=== PATIENT | female | born 2000 | race Hispanic/Latino ===

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

== ENCOUNTER 2024-06-15 21:15 | Emergency (ER) | payer OTHER ==
--- OUTSIDE RECORDS SUMMARY | 2024-06-15 21:20 | XMS REPORT | Continuity of Care Document ---
Author Name Unknown Address [address] [facility] [address] [place] [address] [facility] thconnect Address [address] [facility] [address] [place] [address] Care Team Providers Care Mental Health Technician Name Role Phone PARESH RASCON Primary Care Physician Lluvia vailable REMI LEHMAN Attending Clinician Unavailable PAVITHRA THOMAS Attending Clinician Unavailable MIKE BETH Attending Clinician Unavailable [id number] Attending Clinician Unavailable [id number] Attending Clinician Unavailable MD CANDACE Attending Clinician Unavailab STACY Aggarwal Attending Clinician Unavailable [id number] Attending Clinician Unavailable Gilmar Toribio RN Attending Clinician UnavailMatt Morel MD Attending Clinician [phone] Unknown, Attending Attending Clinician UnavailMATT Cardona Attending Clinician Unavailable Doctor Unassigned, [place] Attending Clinician ROGER Neely Attending Clinician UnavailHEIDI Umana Attending Clinician Unavailable Stacy Martin MD Attending Clinician [id number] Attending Clinician Unavailable Mike Beth MD Attending Clinician [phone] VITOR SANCHEZ Attending Clinician Unavailable Salena Hernandez PA-C Attending Clinician [phone] Payers Payer Name Policy Type Policy Number Effective Date Expirati on Date Source [facility] 2020 9 [id number] 00:00:00 Problems Condition Name Condition Details Condition Category Status Onset Date Resolution Date Last Treatment Date Treating Clinician Comments Source Attention deficit hyperactiv ity disorder (ADHD), combined type Attention deficit hyperactiv ity disorder (ADHD), combined type Disease Active 07-21 00:00: 00 Suly Sawyerold - Externa l No known active problems No known active problems Disease Suly Magallanes Allergies, Adverse Reactions, Alerts Allergy Name Allergy Type Status Severity Reaction(s) Onset Date Inactive Date Treating Clinician Comments Source Augmenti n Propensi ty to adverse reaction s Active 2018-04 00:00: 00 Suly Sawyerold - Externa l Shrimp (Diagnos tic) Propensi ty to adverse reaction s Active 04-30 00:00: 00 Other reaction( s): Unknown Suly Seybold - Externa l Topirama te Propensi ty to adverse reaction s Active Other - See comments 09-28 00:00: 00 [facility] TOPIRAOK TE DRUG INGREDI Active Other-Cmnt 09-28 00:00: 00 [facility] Topirama te Propensi ty to adverse reaction s Active Other 09-28 00:00: 00 Has suicidal thoughts Suly Magallanes - Externa l Shrimp Propensi ty to adverse reaction s Active Hives 07-07 00:00: 00 [facility] AMOXICIL ANIRUDH-POT CLAVULAN ATE DRUG Active Swelling 07-07 00:00: 00 [facility] SHRIMP DRUG INGREDI Active Hives 07-07 00:00: 00 [facility] Amoxicil anirudh-Pot Clavulan ate Propensi ty to adverse reaction s Active Swelling 07-07 00:00: 00 [facility] Amoxicil anirudh Propensi ty to adverse reaction s Active 09-12 00:00: 00 Other reaction( s): Hives/Michael h Suly Sawyerold - Externa l Clavulan ic Acid Propensi ty to adverse reaction s Active 09-12 00:00: 00 Other reaction( s): Hives/Michael h Suly Seybold - Externa l Iodine Propensi ty to adverse reaction s Active 09-12 00:00: 00 Other reaction( s): Hives/Michael h Suly Seybold - Externa l Social History Social Habit Start Date Stop Date Quantity Comments Source Gender identity 2021-04-23 09:22:39 Identifies as female gender (finding) Suly Sawyertien - External Sexual orientation 2021-03-07 11:58:35 Heterosexual (finding) Suly Magallanes - External History SDOH Alcohol Std Drinks Suly shelby History SDOH Alcohol Binge Suly Magallanes History SDOH Alcohol Comment Suly Magaña ld ASSERTION Not Suly Magallanes - External Alcoholic beverage intake 2024-03-22 00:00:00 2024-03-22 00:00:00 Lifetime non-drinker (finding) Suly Magallanes - External Alcohol intake 2023-06-04 00:00:00 2023-06-04 00:00:00 Lifetime non-drinker (finding) Suly Magallanes - External History of Social function 2022-09-05 00:00:00 2022-09-05 00:00:00 Suly Magallanes - External Tobacco use and exposure 2022-08-04 00:00:00 2022-08-04 00:00:00 Smokeless tobacco non-user Suly Magallanes - External Exposure to SARS-CoV-2 (event) 2022-05-16 00:00:00 2022 15:29:00 Not sure [facility] History SDOH Alcohol Frequency 2019-02-15 00:00:00 2019-02-15 00:00:00 1 Suly Sona Sex 2018-09-29 21:57:12 2018-09-29 21:57:12 Female (finding) Suly Magallanes - External Tobacco Comment 2015-07-08 00:00:00 2015-07-08 00:00:00 no smokers in household [facility] Sex Assigned At 2000 00:00:00 2000 00:00:00 [facility] Smoking Status Start Date Stop Date Source Never smoked tobacco Suly Underwood Medications Ordered Medication Name Filled Medication Name Start Date Stop Date Current Medication? Ordering Clinician Indication Dosage Frequency Signature (SIG) Comments Components Source Valacyclovi r HCl 1 g oral Tablet 2023-04 2-10 00:00: 00 Yes [id number] 2000mg Q.5D Take 2 tablets (2,000 mg total) by mouth 2 times daily. Suly Araujoa nunu Lisdexamfet amine Dimesylate 50 MG oral Capsule 2023-04 1-11 00:00: 00 Yes [id number] 50mg Take 1 capsule (50 mg total) by mouth every morning. Suly eddy Lisdexamfet amine Dimesylate (Vyvanse) 40 MG oral Capsule 8-12 00:00: 00 Yes [id number] 40mg Take 1 capsule (40 mg total) by mouth every morning. Suly eddy Valacyclovi r HCl 1 g oral Tablet 8-05 00:00: 00 03-22 00:00 :00 No [id number] 2000mg Q.5D Take 2 tablets (2,000 mg total) by mouth 2 times daily. Suly eddy Lisdexamfet amine Dimesylate (Vyvanse) 20 MG oral Capsule 5-14 00:00: 00 Yes [id number] 20mg Take 1 capsule (20 mg total) by mouth every morning. Suly eddy Valacyclovi r HCl 1 g oral Tablet 4-30 00:00: 00 Yes [id number] 2000mg Take 2 tablets (2,000 mg total) by mouth 2 times daily. Suly eddy Letrozole 2.5 MG oral Tablet 4-24 00:00: 00 09-21 00:00 :00 No [id number] Take two tablets by mouth on days 3-7 of next cycle.. Suly eddy Methylpheni date HCl 10 MG oral Tablet 4-10 00:00: 00 08-24 00:00 :00 No [id number] 10mg Take 1 tablet (10 mg total) by mouth 2 times daily. Suly Araujoa nunu Letrozole 2.5 MG oral Tablet 2-12 00:00: 00 08-04 00:00 :00 No Take two tablets by mouth on days 3-7 of next cycle.. Suly Magallanes - Gaylea l PHENTERMINE HCL OR 05-14 14:46: 20 05-14 00:00 :00 No 1{tbl} Take 1 tablet by mouth daily Suly Lemus l Valacyclovi r HCl 1 g oral Tablet 05-14 00:00: 00 Yes [id number] 2000mg Take 2 tablets (2,000 mg total) by mouth 2 times daily. Suly Araujoa nunu Letrozole 2.5 MG oral Tablet 1-10 00:00: 00 Yes Take two tablets by mouth on days 3-7 of next cycle.. Suly Araujoa l Letrozole 2.5 MG oral Tablet 2022-04 2-15 00:00: 00 05-14 00:00 :00 No [id number] TAKE 1 TABLET BY MOUTH ON DAYS 3-7 OF NEXT CYCLE. Suly Araujoa l PHENTERMINE HCL OR -26 11:18: 49 Yes 1{tbl} Take 1 tablet by mouth daily Suly eddy Letrozole 2.5 MG oral Tablet -26 00:00: 00 Yes [id number] Take one tablet by mouth on days 3-7 of next cycle. Suly Araujoa l PHENTERMINE HCL OR 0 4-24 10:05: 56 Yes 1{tbl} Take 1 tablet by mouth daily Suly eddy ibuprofen 600 mg tablet 2-13 00:00: 00 Yes [id number] 600mg Take 1 tablet by mouth every 6 (six) hours as needed for Pain (scale 4-6) or Pain (scale 1-3). [facility] Ondansetron (ZOFRAN) 4 MG oral TABLET DISPERSIBLE 2-13 00:00: 00 05-14 00:00 :00 No 4mg Q.[id number] 3D Take 1 tablet (4 mg total) by mouth every 8 hours as needed. Suly eddy PHENTERMINE HCL OR 06-26 13:30: 51 Yes 1{tbl} Take 1 tablet by mouth daily Suly Magallanes Acyclovir 400 MG oral Tablet 06-26 00:00: 00 05-14 00:00 :00 No [id number] 400mg Take 1 tablet (400 mg total) by mouth 3 times daily x7 days or until resolution of cold sore. Repeat for at first sign of cold sore. Suly dedy PHENTERMINE HCL OR 05-08 09:38: 05 Yes 1{tbl} Take 1 tablet by mouth daily Suly Magallanes Norgestimat e-Ethinyl Estradiol (Tri-Sprint ec) 0.18/0.215/ 0.25 MG-35 MCG oral Tablet 05-08 00:00: 00 08-04 00:00 :00 No [id number] 1{tbl} Take 1 tablet by mouth daily Suly eddy Venlafaxine HCl 75 MG oral Capsule 24 Hour Sustained Release 2020-04 00:00: 00 08-04 00:00 :00 No [id number] 75mg Take 1 capsule (75 mg total) by mouth daily Suly eddy PHENTERMINE HCL OR 2020-04 10:34: 44 Yes 1{tbl} Take 1 tablet by mouth daily Suly Magallanes Lorazepam (ATIVAN) 0.5 MG oral Tablet tablet 2020-04 00:00: 00 08-04 00:00 :00 No [id number] .25mg Q.[id number] 3D Take 0.5 tablets (0.25 mg total) by mouth every 8 hours as needed for anxiety Suly eddy PHENTERMINE HCL OR 2020-04 14:47: 17 Yes 1{tbl} Take 1 tablet by mouth daily Suly Magallanes Doxycycline Hyclate 100 MG oral Capsule 2020-04 00:00: 00 04-02 05:59 :00 No [id number] 100mg Take 1 capsule (100 mg total) by mouth 2 times daily for 7 days Suly Magallanes Ibuprofen 600 MG oral Tab 2019-04 00:00: 00 Yes [id number] 600mg Q.[id number] 3D Take 1 tablet (600 mg total) by mouth every 8 hours as needed for pain Suly Araujoa l proMETHazin e (PHENERGAN) 25 mg tablet 01-10 00:00: 00 05-26 00:00 :00 No 25mg Take 1 tablet by mouth every 6 (six) hours as needed for Nausea and Vomiting (N/V). [facility] proMETHazin e (PHENERGAN) 25 mg tablet 09-28 00:00: 00 05-26 00:00 :00 No 25mg Take 1 tablet by mouth every 6 (six) hours as needed for Nausea and Vomiting (N/V). [facility] IBUPROFEN ORAL 07-07 09:24: 49 Yes Take by mouth as needed for Headache. [facility] proMETHazin e (PHENERGAN) 25 mg tablet 07-07 00:00: 00 05-26 00:00 :00 No 25mg Take 1 Tab by mouth every 4 (four) hours as needed for Nausea and Vomiting (N/V). [facility] Immunizations Ordered Immunization Name Filled Immunization Name Date Status Comments Source Influenza Virus Vaccine, age 6 months and up 2022-01-31 00:00:00 Rodolfo Underwood Influenza Virus Vaccine, age 6 months and up 2022-01-31 00:00:00 Rodolfo Underwood HPV 9 (Human Papillomavirus) 2021-12-06 00:00:00 Completed Suly Underwood HPV 9 (Human Papillomavirus) 2021-12-06 00:00:00 Rodolfo Underwood PPD-Protein Derivative (Purified)- Tuberculin 2021-11-12 00:00:00 Completed Suly Seybold - External PPD-Protein Derivative (Purified)- Tuberculin 2021-11-12 00:00:00 Completed Suly ybold - External Hepatitis B- 2 Dose (HEPLISAV B) 2021-11-08 00:00:00 Completed Suly ybold - External HPV 9 (Human Papillomavirus) 2021-11-08 00:00:00 Completed Suly ybold - External MENINGOCOCCAL VACCINE-CONJUGATE(ME NQUADFI) 2021-11-08 00:00:00 Completed Suly Palomaresybold - External Tdap- (Boostrix, Adacel) 2021-11-08 00:00:00 Completed Suly ybold - External Hepatitis B- 2 Dose (HEPLISAV B) 2021-11-08 00:00:00 Completed Suly ybold - External HPV 9 (Human Papillomavirus) 2021-11-08 00:00:00 Completed Suly Palomaresjcold - External MENINGOCOCCAL VACCINE-CONJUGATE(ME NQUADFI) 2021-11-08 00:00:00 [facility]- (Boostrix, Adacel) 2021-11-08 00:00:00 Completed Suly ybold - External Covid-19 Vaccine ([employer]), Mrna-lnp, Butch Protein, Pf, 30mcg/0.3ml,IM 2021-08-01 00:00:00 Completed Suly Seybold - External Covid-19 Vaccine (Pfizer), Mrna-lnp, Butch Protein, Pf, 30mcg/0.3ml,IM 2021-08-01 00:00:00 Completed Suly Seybold - External Covid-19 Vaccine (Pfizer), Mrna-lnp, Butch Protein, Pf, 30mcg/0.3ml,IM 2021-06-12 00:00:00 Completed Suly Seybold - External Covid-19 Vaccine (Pfizer), Mrna-lnp, Butch Protein, Pf, 30mcg/0.3ml,IM 2021-06-12 00:00:00 Completed Suly Seybold - External Covid-19 Vaccine (Pfizer), Mrna-lnp, Butch Protein, Pf, 30mcg/0.3ml,IM Unknown Completed Suly Sawyerol d - External Hepatitis B- 2 Dose (HEPLISAV B) Unknown Completed [facility] - External HPV 9 (Human Papillomavirus) Unknown [facility] MENINGOCOCCAL VACCINE-CONJUGATE(ME NQUADFI) Unknown Completed [facility] - External Tdap- (Boostrix, Adacel) Unknown Completed [facility] - External PPD-Protein Derivative (Purified)- Tuberculin Unknown Completed [facility] External Influenza Virus Vaccine, age 6 months and up Unknown Completed [facility] - External Covid-19 Vaccine ([employer]), Mrna-lnp, Butch Protein, Pf, 30mcg/0.3ml,IM Unknown [facility] Hepatitis B- 2 Dose (HEPLISAV B) Unknown Completed [facility] External HPV 9 (Human Papillomavirus) Unknown Completed [facility] - External MENINGOCOCCAL VACCINE-CONJUGATE(ME NQUADFI) Unknown Completed [facility] - External Tdap- (Boostrix, Adacel) Unknown Completed [facility] External PPD-Protein Derivative (Purified)- Tuberculin Unknown Completed [facility] External Influenza Virus Vaccine, age 6 months and up Unknown Completed [facility] - External Covid-19 Vaccine ([employer]), Mrna-lnp, Butch Protein, Pf, 30mcg/0.3ml,IM Unknown [facility] Hepatitis B- 2 Dose (HEPLISAV B) Unknown Completed [facility] External HPV 9 (Human Papillomavirus) Unknown Completed [facility] - External MENINGOCOCCAL VACCINE-CONJUGATE(ME NQUADFI) Unknown Completed [facility] - External Tdap- (Boostrix, Adacel) Unknown Completed [facility] External PPD-Protein Derivative (Purified)- Tuberculin Unknown Completed [facility] - External Influenza Virus Vaccine, age 6 months and up Unknown Completed [facility] - External Covid-19 Vaccine ([employer]), Mrna-lnp, Butch Protein, Pf, 30mcg/0.3ml,IM Unknown [facility] Hepatitis B- 2 Dose (HEPLISAV B) Unknown Completed [facility] - External HPV 9 (Human Papillomavirus) Unknown [facility] - External MENINGOCOCCAL VACCINE-CONJUGATE(ME NQUADFI) Unknown Completed [facility] - External Tdap- (Boostrix, Adacel) Unknown Completed [facility] - External PPD-Protein Derivative (Purified)- Tuberculin Unknown Completed [facility] External Influenza Virus Vaccine, age 6 months and up Unknown Completed [facility] - External Covid-19 Vaccine ([employer]), Mrna-lnp, Butch Protein, Pf, 30mcg/0.3ml,IM Unknown [facility] External Hepatitis B- 2 Dose (HEPLISAV B) Unknown Completed [facility] External HPV 9 (Human Papillomavirus) Unknown Completed [facility] - External MENINGOCOCCAL VACCINE-CONJUGATE(ME NQUADFI) Unknown Completed [facility] External Tdap- (Boostrix, Adacel) Unknown Completed [facility] External PPD-Protein Derivative (Purified)- Tuberculin Unknown Completed [facility] External Influenza Virus Vaccine, age 6 months and up Unknown Completed [facility] External Covid-19 Vaccine ([facility]), Mrna-lnp, Butch Protein, Pf, 30mcg/0.3ml,IM Unknown [facility] External Hepatitis B- 2 Dose (HEPLISAV B) Unknown Completed [facility] External HPV 9 (Human Papillomavirus) Unknown Completed [facility] - External MENINGOCOCCAL VACCINE-CONJUGATE(ME NQUADFI) Unknown Completed [facility] External Tdap- (Boostrix, Adacel) Unknown Completed [facility] External PPD-Protein Derivative (Purified)- Tuberculin Unknown Completed [facility] External Influenza Virus Vaccine, age 6 months and up Unknown Completed [facility] External Covid-19 Vaccine (Pfizer), Mrna-lnp, Butch Protein, Pf, 30mcg/0.3ml,IM Unknown [facility] Hepatitis B- 2 Dose (HEPLISAV B) Unknown Completed [facility] - External HPV 9 (Human Papillomavirus) Unknown Completed [facility] - External MENINGOCOCCAL VACCINE-CONJUGATE(ME NQUADFI) Unknown Completed [facility] - External Tdap- (Boostrix, Adacel) Unknown Completed [facility] - External PPD-Protein Derivative (Purified)- Tuberculin Unknown Completed Suly Magallanes - External Influenza Virus Vaccine, age 6 months and up Unknown Completed Suly Magallanes - External Covid-19 Vaccine ([employer]), Mrna-lnp, Butch Protein, Pf, 30mcg/0.3ml,IM Unknown Completed Suly Sawyerol d - External Hepatitis B- 2 Dose (HEPLISAV B) Unknown Completed Suly Magallanes - External HPV 9 (Human Papillomavirus) Unknown Completed Suly Magaña ld - External MENINGOCOCCAL VACCINE-CONJUGATE(ME NQUADFI) Unknown Completed Suly Magallanes - External Tdap- (Boostrix, Adacel) Unknown Completed Suly Magallanes - External PPD-Protein Derivative (Purified)- Tuberculin Unknown Completed Suly Magallanes - External Influenza Virus Vaccine, age 6 months and up Unknown Completed Suly Magallanes - External Vital Signs Vital Name Observation Time Observation Value Comments S ource Systolic blood pressure 2024-03-22 15:07:00 114 mm[Hg] Suly Palomaresybo ld - External Diastolic blood pressure 2024-03-22 15:07:00 66 mm[Hg] Suly Sawyero ld - External Heart rate 2024-03-22 15:07:00 95 /min Nya Magallanes - External Body temperature 2024-03-22 15:07:00 36.44 Lela Suly Magallanes - External Body height 2024-03-22 15:07:00 154.9 cm Randi tapia Seybold - External Body weight 2024-03-22 15:07:00 78.835 kg Randi tapia Seybold - External BMI 2024-03-22 15:07:00 32.84 kg/m2 Randi tapia Seybold - External Oxygen saturation in Arterial blood by Pulse oximetry 2024-03-22 15:07:00 97 /min Suly Sawyero ld - External Systolic blood pressure 2023-12-23 14:31:00 110 mm[Hg] Suly Palomaresybo ld - External Diastolic blood pressure 2023-12-23 14:31:00 64 mm[Hg] Suly Palomaresybo ld - External Heart rate 2023-12-23 14:31:00 90 /min Franse y Seybold - External Body temperature 2023-12-23 14:31:00 36.5 Lela Suly Seybold - External Respiratory rate 2023-12-23 14:31:00 14 /min Suly Seybold - External Body height 2023-12-23 14:31:00 154.9 cm Randi ey Seybold - External Body weight 2023-12-23 14:31:00 78.382 kg Randi ey Seybold - External BMI 2023-12-23 14:31:00 32.65 kg/m2 Randi ey Seybold - External Heart rate 2023-09-22 15:22:00 85 /min Kelse y Seybold - External Systolic blood pressure 2023-09-22 14:49:00 114 mm[Hg] Suly Seybo ld - External Diastolic blood pressure 2023-09-22 14:49:00 64 mm[Hg] Suly Seybo ld - External Body temperature 2023-09-22 14:49:00 36.5 Lela Suly Seybold - External Respiratory rate 2023-09-22 14:49:00 14 /min Suly Seybold - External Body height 2023-09-22 14:49:00 154.9 cm Randi ey Seybold - External Body weight 2023-09-22 14:49:00 78.019 kg Randi ey Seybold - External BMI 2023-09-22 14:49:00 32.50 kg/m2 Randi ey Seybold - External Systolic blood pressure 2023-08-25 14:57:00 116 mm[Hg] Suly Seybo ld - External Diastolic blood pressure 2023-08-25 14:57:00 72 mm[Hg] Suly Seybo ld - External Heart rate 2023-08-25 14:57:00 80 /min Kelse y Seybold - External Body temperature 2023-08-25 14:57:00 36.5 Lela Suly Seybold - External Respiratory rate 2023-08-25 14:57:00 15 /min Suly Seybold - External Body height 2023-08-25 14:57:00 154.9 cm Randi ey Seybold - External Body weight 2023-08-25 14:57:00 78.926 kg Randi ey Seybold - External BMI 2023-08-25 14:57:00 32.88 kg/m2 Randi ey Seybold - External Systolic blood pressure 2023-08-05 18:43:00 127 mm[Hg] Suly Seybo ld - External Diastolic blood pressure 2023-08-05 18:43:00 84 mm[Hg] Suly Seybo ld - External Heart rate 2023-08-05 18:43:00 123 /min Kelse y Seybold - External Body height 2023-08-05 18:43:00 154.9 cm Randi ey Seybold - External Body weight 2023-08-05 18:43:00 77.747 kg Randi ey Seybold - External BMI 2023-08-05 18:43:00 32.39 kg/m2 Randi ey Seybold - External Systolic blood pressure 2023-07-22 14:56:00 100 mm[Hg] Suly Seybo ld - External Diastolic blood pressure 2023-07-22 14:56:00 68 mm[Hg] Suly Seybo ld - External Heart rate 2023-07-22 14:56:00 84 /min Kelse y Seybold - External Body temperature 2023-07-22 14:56:00 36.83 Lela Suly Seybold - External Respiratory rate 2023-07-22 14:56:00 16 /min Suly Seybold - External Body height 2023-07-22 14:56:00 154.9 cm Randi ey Seybold - External Body weight 2023-07-22 14:56:00 77.111 kg Randi ey Seybold - External BMI 2023-07-22 14:56:00 32.12 kg/m2 Randi ey Seybold - External Systolic blood pressure 2023-06-04 20:02:00 108 mm[Hg] Suly Seybo ld - External Diastolic blood pressure 2023-06-04 20:02:00 72 mm[Hg] Suly Seybo ld - External Heart rate 2023-06-04 20:02:00 102 /min Kelse y Seybold - External Body temperature 2023-06-04 20:02:00 36.56 Lela Suly Seybold - External Respiratory rate 2023-06-04 20:02:00 14 /min Suly Seybold - External Body height 2023-06-04 20:02:00 154.9 cm Randi ey Seybold - External Body weight 2023-06-04 20:02:00 76.658 kg Randi ey Seybold - External BMI 2023-06-04 20:02:00 31.93 kg/m2 Randi ey Seybold - External Systolic blood pressure 2023-05-14 20:43:00 115 mm[Hg] Suly Seybo ld - External Diastolic blood pressure 2023-05-14 20:43:00 72 mm[Hg] Suly Seybo ld - External Heart rate 2023-05-14 20:43:00 77 /min Kelse y Seybold - External Body temperature 2023-05-14 20:43:00 36.83 Lela Suly Seybold - External Respiratory rate 2023-05-14 20:43:00 16 /min Suly Seybold - External Body height 2023-05-14 20:43:00 154.9 cm Randi ey Seybold - External Body weight 2023-05-14 20:43:00 76.658 kg Randi ey Seybold - External BMI 2023-05-14 20:43:00 31.93 kg/m2 Randi ey Seybold - External Oxygen saturation in Arterial blood by Pulse oximetry 2023-05-14 20:43:00 100 /min Suly Seybo ld - External Systolic blood pressure 2022-09-05 16:18:00 120 mm[Hg] Suly Seybo ld - External Diastolic blood pressure 2022-09-05 16:18:00 79 mm[Hg] Suly Seybo ld - External Heart rate 2022-09-05 16:18:00 100 /min Kelse y Seybold - External Respiratory rate 2022-09-05 16:18:00 16 /min Suly Seybold - External Body height 2022-09-05 16:18:00 152.4 cm Randi ey Seybold - External Body weight 2022-09-05 16:18:00 75.297 kg Randi ey Seybold - External BMI 2022-09-05 16:18:00 32.42 kg/m2 Randi ey Seybold - External Systolic blood pressure 2022-08-04 15:08:00 122 mm[Hg] Suly Seybo ld - External Diastolic blood pressure 2022-08-04 15:08:00 84 mm[Hg] Suly ybo ld - External Heart rate 2022-08-04 15:08:00 73 /min Kelse y Seybold - External Respiratory rate 2022-08-04 15:08:00 18 /min Suly ybold - External Body height 2022-08-04 15:08:00 152.4 cm Randi ey Seybold - External Body weight 2022-08-04 15:08:00 76.658 kg Randi ey Seybold - External BMI 2022-08-04 15:08:00 33.01 kg/m2 Randi ey Seybold - External Oxygen saturation in Arterial blood by Pulse oximetry 2022-08-04 15:08:00 99 /min Suly Palomaresybo ld - External Systolic blood pressure 2022 21:54:00 117 mm[Hg] [facility] Diastolic blood pressure 2022 21:54:00 81 mm[Hg] [facility] Heart rate 2022 21:54:00 89 /min [facility] Body temperature 2022 21:54:00 37.22 Lela [facility] Respiratory rate 2022 21:54:00 16 /min [facility] Body height 2022 21:54:00 152.4 cm [facility] Body weight 2022 21:54:00 72.604 kg [facility] BMI 2022 21:54:00 31.26 kg/m2 [facility] Oxygen saturation in Arterial blood by Pulse oximetry 2022 21:54:00 100 /min [facility] Systolic blood pressure 2021-06-26 18:29:00 116 mm[Hg] Suly Seybo ld Diastolic blood pressure 2021-06-26 18:29:00 57 mm[Hg] Suly Palomaresybo ld Heart rate 2021-06-26 18:29:00 73 /min Kelse y Seybold Body temperature 2021-06-26 18:29:00 37.22 Lela Suly Seybold Respiratory rate 2021-06-26 18:29:00 14 /min Suly Seybold Body height 2021-06-26 18:29:00 152.4 cm Randi ey Seybold Body weight 2021-06-26 18:29:00 64.411 kg Randi ey Seybold BMI 2021-06-26 18:29:00 27.73 kg/m2 Randi ey Seybold Systolic blood pressure 2021-05-08 15:28:00 102 mm[Hg] Suly Seybo ld Diastolic blood pressure 2021-05-08 15:28:00 60 mm[Hg] Suly Seybo ld Heart rate 2021-05-08 15:28:00 85 /min Kelse y Seybold Respiratory rate 2021-05-08 15:28:00 16 /min Suly Seybold Body height 2021-05-08 15:28:00 152.4 cm Randi ey Seybold Body weight 2021-05-08 15:28:00 62.052 kg Randi ey Seybold BMI 2021-05-08 15:28:00 26.72 kg/m2 Randi ey Seybold Oxygen saturation in Arterial blood by Pulse oximetry 2021-05-08 15:28:00 99 /min Suly Seybo ld Systolic blood pressure 2021-03-25 20:46:00 113 mm[Hg] Suly Seybo ld Diastolic blood pressure 2021-03-25 20:46:00 82 mm[Hg] Suly Seybo ld Heart rate 2021-03-25 20:46:00 74 /min Kelse y Seybold Body height 2021-03-25 20:46:00 152.4 cm Randi ey Seybold Body weight 2021-03-25 20:46:00 58.333 kg Randi ey Seybold BMI 2021-03-25 20:46:00 25.12 kg/m2 Randi ey Seybold Procedures Procedure Date / Time Performed Performing Clinicia n Source POCT MOLECULAR FLU 2022 22:02:00 Unknown, Attend ing [facility] ASSIGNMENT OF BENEFITS 2022 21:31:15 Docto r Unassigned, [place] [facility] Encounters Start Date/Time End Date/Time Encounter Type Admission Type Attending [facility] Care Department Encounter ID Source 2024-07-19 09:00:00 2024-07-19 09:00:00 Outpatient REMI LEHMAN [facility]ULY ROMAN [id number] [facility] 2024-06-21 09:15:00 2024-06-21 09:15:00 Outpatient PREPAVITHRA IRIZARRY SULY ROMAN [id number] Suly [facility] 2024-06-15 00:00:00 2024-06-15 00:00:00 Outpatient KIRIT MIKE ROMAN [id number] Suly [facility] 2024-06-14 14:40:00 2024-06-14 14:40:00 Outpatient LABCheryl SULY ROMAN [id number] Suly [facility] 2024-06-13 00:00:00 2024-06-13 00:00:00 Out[facility] BETH[facility] [id number] [facility] 2024-05-25 00:00:00 2024-05-25 00:00:00 Outpatient REMI LEHMAN SULY ROMAN [id number] Suly [facility] 2024-05-25 00:00:00 2024-05-25 00:00:00 Outpatient PREZAS PAVITHRA [facility] [id number] [facility] 2024-05-23 00:00:00 2024-05-23 00:00:00 Outpatient PREZAS PAVITHRA [facility] [id number] [facility] 2024-04-21 00:00:00 2024-04-21 00:00:00 Outpatient PREZAPAVITHRA Garcia SULY ROMAN [id number] Suly [facility] 2024-03-22 09:45:00 2024-03-22 09:45:00 Outpatient LABCheryl SULY ROMAN [id number] [facility] 2024-03-22 09:00:00 2024-03-22 09:00:00 Outpatient FALLON REMI ROMAN [id number] [facility] 2024-03-22 00:00:00 2024-03-22 00:00:00 Outpatient PREZAPAVITHRA Garcia SULY ROMAN [id number] [facility] 2024-02-22 00:00:00 2024-02-22 00:00:00 Outpatient PREZAS, PAVITHRA [facility]ULY ROMAN [id number] [facility] 2024-01-20 00:00:00 2024-01-20 00:00:00 Outpatient PREZAS, PAVITHRA SULY ROMAN [id number] [facility] 2024-01-14 00:00:00 2024-01-14 00:00:00 Outpatient SULY ROMAN [id number] [facility] 2024-01-12 00:00:00 2024-01-12 00:00:00 Outpatient BETH MIKE ROMAN [id number] [facility] 2023-12-30 00:00:00 2023-12-30 00:00:00 Outpatient SULY ROMAN [id number] [facility] 2023-12-23 09:30:00 2023-12-23 09:30:00 Outpatient HUNDL, [facility] [id number] [facility] 2023-12-23 00:00:00 2023-12-23 00:00:00 Outpatient PREZAS, PAVITHRA SULY ROMAN [id number] [facility] 2023-12-23 00:00:00 2023-12-23 00:00:00 Outpatient BETH, MIKE SULY ROMAN [id number] [facility] 2023-11-22 00:00:00 2023-11-22 00:00:00 Outpatient PREZAS, PAVITHRALIZETH ROMAN [id number] [facility] 2023-11-16 00:00:00 2023-11-16 00:00:00 Outpatient HUNDL REMI ROMAN [id number] [facility] 2023-10-24 00:00:00 2023-10-24 00:00:00 Outpatient PREZAS, PAVITHRA ROMAN [id number] [facility] 2023-10-23 00:00:00 2023-10-23 00:00:00 Outpatient PREZAS, PAVITHRALIZETH ROMAN [id number] [facility] 2023-10-22 00:00:00 2023-10-22 00:00:00 Outpatient PREZASPAVITHRA SULY ROMAN [id number] Suly Seybold 2023-10-21 00:00:00 2023-10-21 00:00:00 Outpatient HUNDL REMI ROMAN [id number] Suly Seybold 2023-09-22 10:00:00 2023-09-22 10:00:00 Outpatient HUNDL, REMI ROMAN [id number] Suly Seybold 2023-09-22 00:00:00 2023-09-22 00:00:00 Outpatient PREZASPAVITHRA SULY ORMAN [id number] Suly Seybold 2023-08-25 10:00:00 2023-08-25 10:00:00 Outpatient HUNDL, REMI ROMAN [id number] Suly Seybold 2023-08-25 00:00:00 2023-08-25 00:00:00 Outpatient PREZASPAVITHRA SULY ROMAN [id number] Suly Seybold 2023-08-09 00:00:00 2023-08-09 00:00:00 Outpatient BETHMIKE JESUS [id number] Suly Seybold 2023-08-08 00:00:00 2023-08-08 00:00:00 Outpatient FALLON REMI ROMAN [id number] Suly Seybold 2023-08-06 15:00:00 2023-08-06 15:00:00 Outpatient POORNIMAL, REMI ROMAN [id number] Suly Seybold 2023-08-05 14:15:00 2023-08-05 14:15:00 Outpatient PGT519Valerio ROMAN [id number] Suly Seybold 2023-08-05 13:45:00 2023-08-05 13:45:00 Outpatient BETHMIKE JESUS [id number] Suly Seybold 2023-07-22 10:00:00 2023-07-22 10:00:00 Outpatient HUNDL, REMI ROMAN [id number] Suly Seybold 2023-07-22 00:00:00 2023-07-22 00:00:00 Outpatient PRESUBHASHPAVITHRA Garcia SULY ROMAN [id number] [facility] 2023-07-08 00:00:00 2023-07-08 00:00:00 Outpatient REMI LEHMAN [id number] [facility] 2023-06-22 00:00:00 2023-06-22 00:00:00 Outpatient MIKE BETH [id number] [facility] 2023-06-22 00:00:00 2023-06-22 00:00:00 Outpatient MD SULY HARRELL [id number] [facility] 2023-06-12 08:25:00 2023-06-12 08:25:00 Outpatient LAB90 SULY ROMAN [id number] [facility] 2023-06-08 00:00:00 2023-06-08 00:00:00 Outpatient MIKE BETH [id number] [facility] 2023-06-04 14:45:00 2023-06-04 14:45:00 Outpatient LAB90 SULY ROMAN [id number] Suly [facility] 2023-06-04 14:00:00 2023-06-04 14:00:00 Outpatient FALLON REMI ROMAN [id number] [facility] 2023-05-24 00:00:00 2023-05-24 00:00:00 Outpatient MIKE BETH [id number] [facility]uly [facility] 2023-05-14 15:45:00 2023-05-14 15:45:00 Outpatient LAB90 SULY ROMAN [id number] Suly Seybold 2023-05-14 15:00:00 2023-05-14 15:00:00 Outpatient REMI LEHMAN [id number] Suly Seybold 2023-04-22 00:00:00 2023-04-22 00:00:00 Outpatient MIKE BETH [id number] Suly Seybold 2023-04-15 08:10:00 2023-04-15 08:10:00 Outpatient LAB90 SULY ROMAN [id number] Suly Seybold 2023-03-26 00:00:00 2023-03-26 00:00:00 Outpatient STACY MARTIN SULY ROMAN [id number] [facility] 2023-03-26 00:00:00 2023-03-26 00:00:00 Outpatient BETH, MIKE ROMAN [id number] [facility] 2023-03-16 15:35:00 2023-03-16 15:35:00 Outpatient LAB90 SULY ROMAN [id number] [facility] 2023-02-25 00:00:00 2023-02-25 00:00:00 Outpatient BETH, MIKE ROMAN [id number] [facility] 2023-02-16 16:10:00 2023-02-16 16:10:00 Outpatient LAB90 SULY ROMAN [id number] [facility] 2023-01-28 00:00:00 2023-01-28 00:00:00 Outpatient BETH, MIKE ROMAN [id number] [facility] 2023-01-19 15:55:00 2023-01-19 15:55:00 Outpatient LAB90 SULY ROMAN [id number] [facility] 2022-12-19 08:05:00 2022-12-19 08:05:00 Outpatient LAB90 SULY ROMAN [id number] [facility] 2022-12-02 00:00:00 2022-12-02 00:00:00 Outpatient BETH, MIKE ROMAN [id number] [facility] 2022-11-25 16:00:00 2022-11-25 16:00:00 Outpatient LAB90 SULY ROMAN [id number] [facility] 2022-11-23 00:00:00 2022-11-23 00:00:00 Outpatient KIRIT, MIKE ROMAN [id number] [facility] 2022-11-05 00:00:00 2022-11-05 00:00:00 Outpatient MD SULY HARRELL [id number] [facility] 2022-11-04 00:00:00 2022-11-04 00:00:00 Outpatient BETH, MIKE ROMAN [id number] Suly Magallanes 2022-10-13 00:00:00 2022-10-13 00:00:00 Outpatient BETHMIKE JESUS [id number] Suly Magallanes 2022-10-01 15:40:00 2022-10-01 15:40:00 Outpatient LAB90 SULY SULY [id number] Suly [facility] 2022-09-19 00:00:00 2022-09-19 00:00:00 Outpatient BETHMIKE JESUS SULY [id number] Suly Magallanes 2022-09-05 11:15:00 2022-09-05 11:15:00 Outpatient BETHMIKE JESUS SULY ROMAN [id number] Suly Magallanes 2022-08-11 00:00:00 2022-08-11 00:00:00 Outpatient MD SULY HARRELL [id number] [facility] 2022-08-04 10:35:00 2022-08-04 10:35:00 Outpatient LAB47 SULY SULY [id number] [facility] 2022-08-04 09:45:00 2022-08-04 09:45:00 Outpatient BETHMIKE JESUS SULY [id number] Suly [facility] 2022-05-27 00:00:00 2022-05-27 00:00:00 Letter (Out) Gilmar Toribio [facility] 1.840.114 350.1.13.10 4.2.7.2.686 [id number] [facility] 2022 15:20:00 2022 16:27:42 Urgent Care Matt Guerrero Unknown, [facility] 1..840.114 350.1.13.10 4.2.7.2.686 [id number] [facility] 2022 15:20:00 2022 16:27:42 Outpatient R MATT GUERRERO [facility] [id number] [facility] 2022 00:00:00 2022 00:00:00 Letter (Out) Cesar [facility] YARI?[facility] OFF[facility] 1.2.840.114 350.1.13.10 4.2.7.2.686 [id number] [facility] 2022 00:00:00 2022 00:00:00 [facility] (Out[facility] 1.2.840.114 350.1.13.10 4.2.7.2.686 [id number] [facility] 2022 00:00:00 2022 00:00:00 Letter (Out) Cesar [facility] YARI?[facility] 1.2.840.114 350.1.13.10 4.2.7.2.686 [id number] [facility] 2022 00:00:00 2022 00:00:00 Orders Only Doctor Unassigned, [place] [facility] 1.2.840.114 350.1.13.10 4.2.7.2.686 [id number] [facility] 2022-01-31 14:45:00 2022-01-31 14:45:00 Outpatient ROGER SEGOVIA [id number] Suly [facility] 2021-12-06 11:00:00 2021-12-06 11:00:00 Outpatient ROGER SEGOVIA [id number] Suly [facility] 2021-11-12 11:00:00 2021-11-12 11:00:00 Outpatient ROGER SEGOVIA [id number] Suly [facility] 2021-11-12 10:30:00 2021-11-12 10:30:00 Outpatient REMI LEHMAN [id number] [facility] 2021-11-11 00:00:00 2021-11-11 00:00:00 Outpatient HEIDI WATKINS SULY [id number] Suly Magallanes 2021-11-08 11:15:00 2021-11-08 11:15:00 Outpatient ROGER SEGOVIA SULY [id number] Suly Magallanes 2021-09-25 16:40:00 2021-09-25 16:40:00 Outpatient LAB90 SULY SULY [id number] [facility] 2021-09-25 14:45:00 2021-09-25 14:45:00 Outpatient ROGER SEGOVIA SULY [id number] [facility] 2021-08-27 09:00:00 2021-08-27 09:00:00 Outpatient WILLIAMPAVITHRA SULY ROMAN [id number] [facility] 2021-06-26 13:30:00 2021-06-26 13:45:00 Office Visit Stacy Martin 1.2.840.114 350.1.13.13 1.2.7.2.686 [id number] [facility] 2021-06-09 13:35:00 2021-06-09 13:35:00 Emergency [facility] [id number] [facility] 2021-05-08 12:15:00 2021-05-08 12:15:00 Outpatient [id number] SULY ROMAN [id number] Suly [facility] 2021-05-08 09:30:00 2021-05-08 09:45:00 Office Visit Mike Beth 1.2.840.114 350.1.13.13 1.2.7.2.686 [id number] [facility] 2021-05-02 09:15:00 2021-05-02 09:15:00 Outpatient HEIDI WATKINS [facility]ULY ROMAN [id number] [facility] 2021-04-22 13:00:00 2021-04-22 13:00:00 Outpatient LAURAVITOR SULY ROMAN [id number] [facility] 2021-04-11 00:00:00 2021-04-11 00:00:00 Outpatient HEIDI WATKINS [id number] [facility] 2021-03-28 11:40:00 2021-03-29 11:44:11 E-Visit Salena Hernandez [facility] 1.2.840.114 350.1.13.13 1.2.7.2.686 [id number] [facility] 2021-03-29 11:15:00 2021-03-29 11:15:00 Outpatient HEIDI WATKINS [id number] [facility] 2021-03-25 14:45:00 2021-03-25 14:45:00 Office Visit VITOR SANCHEZ 1.2.840.114 350.1.13.13 1.2.7.2.686 [id number] S[facility] 2021-03-20 14:15:00 2021-03-20 14:15:00 Outpatient MIKE BETH [id number] [facility] 2021-03-14 00:00:00 2021-03-14 00:00:00 Outpatient MD SULY HARRELL [id number] [facility] 2021-02-28 00:00:00 2021-02-28 00:00:00 Outpatient MD SULY HARRELL [id number] S[facility] 2021-01-28 11:00:00 2021-01-28 11:00:00 Outpatient SULY ROMAN [id number] [facility] 2020-12-31 11:15:00 2020-12-31 11:15:00 Outpatient HEIDI WATKINS [id number] S[facility] 2020-11-28 00:00:00 2020-11-28 00:00:00 Outpatient MIKE BETH [id number] [facility] 2020-11-28 00:00:00 2020-11-28 00:00:00 Outpatient MD SULY HARRELL [id number] Suly Magall[facility] 2020-11-21 10:45:00 2020-11-21 10:45:00 Outpatient SULY ROMAN [id number] Suly Magallanes Results Test Description Test Time Test Comments Results Result [id number]:13:42* Test Item Value Reference Range Interpretation Comme nts POCT Molecular FluA (test co de = 84481-3) Negative Negative POCT Molecular FluB (test co de = 52114-8) Negative Negative Lab Interpretation (test cod e = 24154-6) Normal [facility] Notes Date/Time Note Provider Source 2024-03-22 09:10:04 Chief Complaint Patient presents with ADD Refill on Vyvanse and Valacyclovir. Maira Galloway MA II [facility] 2023-12-23 09:34:55 Chief Complaint Patient presents with Follow-up Follow up on ADHD Maira Galloway MA II [facility] 2023-09-22 09:54:49 Chief Complaint Patient presents with Follow-up Follow up on ADD Maira Galloway MA II [facility] 2023-08-25 10:00:55 Chief Complaint Patient presents with Follow-up Follow up on Methylpehnidate. She states that it's not helping. Maira Galloway MA II [facility] 2023-08-05 13:43:59 Khalif Do is here today for her Well Woman Exam. Patient's last menstrual period was 07/19/2023. The patient's last pap smear was 4.24.23 and her last mammogram was never. Advanced Directives: Discussed: No Information Given: No Completed: No Copy on File: No Culvert Installer present in room for exam. Richa Cortes LVN [facility] 2023-07-22 10:00:28 Chief Complaint Patient presents with Follow-up Wants to discuss psychology report and treatment. DX with ADHD Lindsey Caldwell LVN [facility] 2023-06-04 14:05:39 Chief Complaint Patient presents with Physical Patient is fasting. No other issues to discuss Maiar Galloway MA II [facility] 2023-05-14 14:48:16 Chief Complaint Patient presents with REFILLS-NURSE/MD And blood work [facility]
--- NOTE | 2024-06-15 22:11 | RAD REPORT ---
EXAM: Transvaginal OB HISTORY: ABD CRAMPING, COMPARISON: None TECHNIQUE: Multiple grayscale and color Doppler images were obtained in a transvaginal pelvic ultraso und. Spectral analysis of the Doppler waveforms of the ovaries were performed. FINDINGS: UTERUS: No IUP identified. The endometrial stripe measures 11 mm. Right adnexal structure adjacent to the right ovary measuring approximately 1.3 x 1.4 cm which appear s to be adjacent to but separate from the right ovary. It has a small cystic area. There is no significant surrounding flow. RIGHT OVARY: The right ovary measures 3.1 x 1.9 x 1.19 cm with volume of 5.9 cc. Vascular flow presen t. LEFT OVARY: The left ovary measures 2.4 x 1.6 x 1.5 cm volume of 3 cc. Vascular flow present. IMPRESSION: Right adnexal structure with central cystic area which is separate from the right ovary. In the absen ce of a normal IUP, this is consistent with an unruptured ectopic until proven otherwise. Bilateral ovarian blood flow. No free fluid.
[2024-06-15 23:24] LABS: Absolute Basophils 0.1 K/uL (0-0.5); Absolute Eosinophils 0.1 K/uL (0-0.5); Absolute Lymphocytes (CBC) 2.7 K/uL (0.7-4.9); Absolute Monocytes 0.7 K/uL (0.1-1.3); Absolute Neutrophil 6.8 K/uL (1.8-8.0); Basophils % 0.5 % (0-1.3); Eosinophils % 0.5 % (0-4.4); Hematocrit 36.7 % (36.0-45.0); Hemoglobin 12.6 g/dL (12.0-15.0); Lymphocytes % 26.4 % (15.3-44.8); MCH 32.4 pg (27.0-35.0); MCHC 34.3 g/dL (32.0-36.0); MCV 94.5 fL (80-100); MPV 9.6 fL (7.6-11.3); Monocytes % 6.4 % (3.3-12.3); Neutrophils % 66.2 % (41.7-73.7); Nucleated Red Blood Cells % 0.1 % (0-0); Platelets 247 thou/uL (152-406); RBC Red Blood Cell Count 3.88 M/uL (3.86-4.86); Red Cell Distribution Width 12.8 % (12.1-15.2)
[2024-06-15 23:45] LABS: Anion Gap 6.7 mEq/L (5.0-15.0); Potassium 3.7 mEq/L (3.5-5.1)
--- NOTE | 2024-06-16 00:10 | EDPHYS ---
Physician Documentation [facility] Name: Kacie Sauer Age: 24 yrs Sex: Female : 2000 Arrival Date: 06/15/2024 Time: 21:15 Bed 20 Private MD: ED Physician Reji Mehta HPI: 06/16 00:06 This 24 yrs old Female presents to ER via Ambulatory with complaints of kb Vaginal Bleeding, Pelvic Pain, APPROX 4-6 WKS GESTATION, PT IS UNSURE. 00:06 Patient is a 24-year-old female who presents for vaginal bleeding and lower abdominal kb cramping that started today. States she had a positive home test. LMP 06/07. G1, . 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 Flu vaccine is not up to date. - Infectious Disease History:: Denies. - Social history:: Smoking status: Patient denies any tobacco usage or history of. ROS: 06/16 00:06 Constitutional: As per HPI kb Exam: 00:06 Constitutional: This is a well developed, well nourished patient who is awake, alert, kb and in no acute distress. Head/Face: Normocephalic, atraumatic. ENT: Moist Mucous membranes Cardiovascular: Regular rate Respiratory: Respirations even and unlabored. No increased work of breathing. Talking in full sentences Abdomen/GI: Soft, non-tender. No distention Skin: Warm, dry with normal turgor. Normal color. MS/ Extremity: Pulses equal, no cyanosis. Neurovascular intact. Full, normal range of motion. Neuro: Awake and alert, GCS 15, oriented to person, place, time, and situation. Vital Signs: 06/15 22:25 BP 138 / 84; Pulse 88; Resp 16; Pulse Ox 100% on R/A; ay 22:30 BP 138 / 84; Pulse 92; Resp 16; Temp 98.9; Pulse Ox 100% on R/A; ay 23:00 BP 119 / 83; Pulse 74; Resp 17; Pulse Ox 100% on R/A; ay 06/16 00:00 BP 114 / 73; Pulse 71; Resp 18; Pulse Ox 100% on R/A; ay MDM: 06/15 21:18 Medical Screening Exam initiated kb 06/16 00:07 Differential diagnosis: dysmenorrhea, ectopic , threatened Ab, ovarian cyst. kb Data reviewed: vital signs, nurses notes. Management of patient was discussed with the following: Dr Mehta, recommended follow up outpatient. Counseling: I had a detailed discussion with the patient and/or guardian regarding the historical points, exam findings, and any diagnostic results supporting the discharge/admit diagnosis, lab results, radiology results, the need for outpatient follow up, an OB/Gyne specialist, to return to the emergency department if symptoms worsen or persist or if there are any questions or concerns that arise at home. ED course: Serum test negative, hcg less than 3. Patient has no abd tenderness and is in no distress. Patient educated on all results and will call her web architect in the morning to schedule follow-up. . 06/15 21:30 Order name: Abo/rh Typing; Complete Time: 23:57 kb 06/15 21:30 Order name: Basic Metabolic Panel; Complete Time: 23:47 kb 06/15 21:30 Order name: CBC with Diff; Complete Time: 23:47 kb 06/15 21:30 Order name: Quantitative Hcg; Complete Time: 23:47 kb 06/15 22:50 Order name: Test, Serum; Complete Time: 23:47 kb 06/15 21:30 Order name: US Transvaginal Ob; Complete Time: 22:14 kb 06/15 21:30 Order name: IV Saline Lock; Complete Time: 23:16 kb 06/15 21:30 Order name: Labs collected and sent; Complete Time: 23:16 kb 06/15 21:30 Order name: NPO; Complete Time: 23:16 kb Administered Medications: No medications were administered Disposition: 23:08 Co-signature as Attending Physician, Reji Mehta MD I agree with the assessment sp4 and plan of care. I reviewed the patient's care provided by the Advanced Practice Provider and agree with the diagnosis and treatment plan. Disposition Summary: 06/16/24 00:09 Discharge Ordered Notes: Location: Home kb Condition: Stable kb Diagnosis - Other ovarian cysts kb Followup: kb - With: Emergency Department - When: As needed - Reason: Worsening of condition Followup: kb - With: Private Physician - When: 2 - 3 days - Reason: Recheck today's complaints, Continuance of care, Re-evaluation by your physician Discharge Instructions: - Discharge Summary Sheet kb - Ovarian Cyst, [place]ta[place]tu-Urrl kb Forms: - Medication Reconciliation Form kb - Antibiotic Education kb - Prescription Opioid Use kb - Patient Portal Instructions kb - Leadership Thank You Letter kb Signatures: Dispatcher [employer] EDCT Melanie Curran, TRENT-C TRENT-Reji Livingston MD MD sp4 Maira Hickey RN RN ay Corrections: (The following items were deleted from the chart) 06/15 22:39 22:37 PMHx: Migraines; ay ay 22 22:37 PMHx: cyclical vomiting syndrome; ay ay 06/16 00:19 00:07 ED course: Serum test negative. Patient educated on all results and kb will call her web architect in the morning to schedule follow-up.. kb
--- NOTE | 2024-06-16 00:10 | ER ---
Nurse's Notes [facility] Name: Kacie Sauer Age: 24 yrs Sex: Female : 2000 Arrival Date: 06/15/2024 Time: 21:15 Bed 20 Private MD: Diagnosis: Other ovarian cysts Presentation: 06/15 21:50 Note Pt in [place] at this time. cm10 22:30 Chief complaint: Patient states: Vaginal bleeding, lower abdominal pain. Coronavirus ay screen: Client denies travel out of the [place] in the last 14 days. Ebola Screen: No symptoms or risks identified at this time. Initial Sepsis Screen: Does the patient meet any 2 criteria? No. Patient's initial sepsis screen is negative. Does the patient have a suspected source of infection? No. Patient's initial sepsis screen is negative. Risk Assessment: Do you want to hurt yourself or someone else? Patient reports no desire to harm self or others. Note Pt WI with a c/o vaginal heavy bleeding that started about 1400 hours. Denies SOB, CP. C/o nausea but denies vomiting. Endorsed lower abd pain 4/10. Onset of symptoms was June 15, 2024 at 14:00. 22:30 Method Of Arrival: Ambulatory ay 22:30 Acuity: YAZMIN 3 ay Triage Assessment: 22:37 General: Appears in no apparent distress. uncomfortable, Behavior is calm, cooperative. ay Pain: Complains of pain in pelvis Pain currently is 4 out of 10 on a pain scale. EENT: No signs and/or symptoms were reported regarding the EENT system. Neuro: Level of Consciousness is awake, alert, obeys commands, Oriented to person, place, time, situation, Speech is normal. Cardiovascular: Capillary refill < 3 seconds. Respiratory: Airway is patent Respiratory effort is even, unlabored, Respiratory pattern is regular, symmetrical. GI: Reports lower abdominal pain, nausea, Patient currently denies vomiting. : Reports vaginal bleeding that is bright red, heavy flow. DIRECTOR TELECOMMUNICATIONS: 22:37 LMP 05/17/2024, unknown ay Historical: - Allergies: 22:37 Augmentin; ay - Immunization history:: Client reports having NOT received the Covid vaccine. Flu vaccine is not up to date. - Infectious Disease History:: Denies. - Social history:: Smoking status: Patient denies any tobacco usage or history of. Screenin:43 [facility] ED Fall Risk Assessment (Adult) History of falling in the last 3 months, ay including since admission No falls in past 3 months (0 pts) Confusion or Disorientation No (0 pts) Intoxicated or Sedated No (0 pts) Impaired Gait No (0 pts) Mobility Assist Device Used No (0 pt) Altered Elimination No (0 pt) Score/Fall Risk Level 0 - 2 = Low Risk. Abuse screen: Denies threats or abuse. Nutritional screening: No deficits noted. Tuberculosis screening: No symptoms or risk factors identified. Assessment: 22:43 General: See Triage Assessment. ay 06/16 00:19 Reassessment: Patient appears in no apparent distress at this time. Patient is alert, ay oriented x 3, equal unlabored respirations, skin warm/dry/pink. Vital Signs: 06/15 22:25 BP 138 / 84; Pulse 88; Resp 16; Pulse Ox 100% on R/A; ay 22:30 BP 138 / 84; Pulse 92; Resp 16; Temp 98.9; Pulse Ox 100% on R/A; ay 23:00 BP 119 / 83; Pulse 74; Resp 17; Pulse Ox 100% on R/A; ay 06/16 00:00 BP 114 / 73; Pulse 71; Resp 18; Pulse Ox 100% on R/A; ay ED Course: 06/15 21:18 Patient arrived in ED. [id number] 21:18 Melanie Curran FNP-C [facility] kb 21:18 Timur Castano MD is Attending Physician. kb 21:18 Reji Mehta MD is Attending Physician. kb 21:59 US Transvaginal Ob In Process Unspecified. EDMS 22:30 Maira Hickey, DEJUAN is Primary Nurse. ay 22:36 Triage completed. ay 23:17 Abo/rh Typing Sent. ay 23:17 Basic Metabolic Panel Sent. ay 23:17 CBC with Diff Sent. ay 23:17 Test, Serum Sent. ay 06/16 00:27 IV discontinued, intact, bleeding controlled, No redness/swelling at site. Pressure ay dressing applied. 00:28 Arm band placed on right wrist. ay Administered Medications: No medications were administered Outcome: 00:09 Discharge ordered by . kb 00:27 Discharged to home ambulatory, ay 00:27 Condition: stable 00:27 Discharge instructions given to patient, Instructed on discharge instructions, follow up and referral plans. Demonstrated understanding of instructions, follow-up care, 00:28 Patient left the ED. ay Signatures: Dispatcher [employer] EDMelanie Muniz, CHIEF COMPLIANCE OFFICER-C CHIEF COMPLIANCE OFFICER-CkJenna Khan [id number] Giovana Lloyd RN RN cm10 Maira Hickey RN RN ay Corrections: (The following items were deleted from the chart) 06/15 22:39 22:37 PMHx: Migraines; ay ay 39 22:37 PMHx: cyclical vomiting syndrome; ay ay
[2024-06-16 00:40] VITALS: O2SAT 100
[2024-06-16 00:42] VITALS: TEMP 98.9
[2024-06-16 00:44] VITALS: BP 114/73
== END 2024-06-16 00:28 | disposition home or self-care (01) ==
LOC: ER 21:15
DX: N83.291 Other ovarian cyst, right side (principal)
CPT/HCPCS: 36415; 76817; 80048; 84702; 84703; 85025; 86900; 86901; 99283